=== PATIENT | female | born 2000 | race Two or more races ===

== ENCOUNTER 2018-02-24 08:26 | Emergency (ER) | payer OTHER ==
[2018-02-24 08:34] VITALS: BP 103/73; PULSE 77; TEMP 98.6; BMI 27.4
--- NOTE | 2018-02-24 08:57 | PDOC ---
History of Present Illness - General Chief Complaint: Sore Throat Stated Complaint: SORE THROAT Time Seen by Provider: 02/24/18 08:49 History Source: Patient Exam Limitations: No Limitations - History of Present Illness Initial Comments: 02/24/18 08:52 17 yr female with sore throat and runny nose 2 weeks no fever. pt has no pmhx or allergies. non smoker. 02/24/18 08:53 Past History - Past Medical History Allergies/Adverse Reactions: Allergies Allergy/AdvReac Type Severity Reaction Status Date / Time No Known Allergies Allergy Verified 02/24/18 08:31 Home Medications: Ambulatory Orders NK [No Known Home Medication] 02/24/18 COPD: No - Suicide/Smoking/Psychosocial Hx Smoking History: Never smoked Hx Alcohol Use: No Drug/Substance Use Hx: No Review of Systems - Review of Systems Able to Perform ROS?: Yes Is the patient limited [place] proficient: No Constitutional: No: Symptoms Reported HEENTM: Yes: Symptoms Reported, Throat Pain Respiratory: No: Cough Cardiac (ROS): No: Symptoms Reported ABD/GI: No: Symptoms Reported : No: Symptoms Reported Musculoskeletal: No: Symptoms Reported Integumentary: No: Symptoms Reported Neurological: No: Symptoms reported *Physical Exam - Vital Signs Last Vital Signs Temp Pulse Resp BP Pulse Ox 98.6 F 77 16 103/73 99 02/24/18 08:31 02/24/18 08:31 02/24/18 08:31 02/24/18 08:31 02/24/18 08:31 - Physical Exam General Appearance: Yes: Nourished, Appropriately Dressed HEENT: positive: EOMI, JAGUAR, Pharyngeal Erythema, Rhinorrhea Neck: positive: Supple. negative: Lymphadenopathy (R), Lymphadenopathy (L) Respiratory/Chest: positive: Lungs Clear, Normal Breath Sounds Cardiovascular: positive: Regular Rhythm, Regular Rate Gastrointestinal/Abdominal: positive: Normal Bowel Sounds, Soft. negative: Tender Musculoskeletal: positive: Normal Inspection Extremity: positive: Normal Capillary Refill, Normal Inspection, Normal Range of Motion Integumentary: positive: Normal Color, Dry, Warm Neurologic: positive: sign builder II-XII NML intact, Fully Oriented, Alert, Normal Mood/ Affect, Normal Response, Motor Strength 5/5 Medical Decision Making - Medical Decision Making 02/24/18 08:56 cc: sore throat runny nose non toxic well appearing will check for strep 02/24/18 10:04 negative strep dc home supportive care viral URI pt stable all questions asked and answered at discharge. *DC/Admit/Observation/Transfer Diagnosis at time of Disposition: Pharyngitis Qualifiers: Pharyngitis/tonsillitis etiology: unspecified etiology Qualified Code(s): J02.9 - Acute pharyngitis, unspecified - Discharge Dispostion Disposition: HOME Condition at time of disposition: Good - Referrals Referrals: Madi Ayers MD [Primary Care Provider] - - Patient Instructions Additional Instructions: gargle with warm salt water 4-5 times a day tea with honey and lemon any over the counter throat lozengers you like take advil as directed for pain follow with your doctor for any worsening symptoms - Post Discharge Activity
== END 2018-02-24 10:10 | disposition home or self-care (01) ==
LOC: JERFT 08:26
DX: J02.9 Acute pharyngitis, unspecified (principal); J06.9 Acute upper respiratory infection, unspecified; B97.89 Other viral agents as the cause of diseases classified elsewhere
CPT/HCPCS: 87070; 87430; 99281-25